=== PATIENT | female | born 1960 | race Caucasian/White ===

== ENCOUNTER 2019-03-07 18:37 | Inpatient (IN) | payer OTHER ==
[~2019-03-07] VITALS: Ht 162.6 cm; Wt 57.2 kg
[~2019-03-07 18:37] MED LIST: AMLODIPINE BESY10 MG; ATORVASTATIN CA10 MG; CYCLOBENZAPRINE10 MG; SYNTHROID100 MCG
[2019-03-22] MEDS ORDERED: AMOX-CLAV 875-1 EACH PO (10:13)
[2019-03-22] MEDS ORDERED: INTESTINEX680 M1 PO (10:13)
[2019-03-22] MEDS ORDERED: ULTRACET PO (10:13)
== END 2019-03-22 12:40 | disposition home or self-care (01) | DRG 754 ==
LOC: ER 18:37 → MEDI 23:43 → MEDJ 23:43 → SEC-K 03-08 02:51 → MEDI 03-08 16:58 → MEDJ 03-09 22:03
PROVIDERS: ADMIT Internal Medicine
PROC: BW3GY0Z Magnetic Resonance Imaging (MRI) of Pelvic Region using Other Contrast, Unenhanced and Enhanced (ICD-10-PCS; 2019-03-07)
PROC: 8E0ZXY6 Isolation (ICD-10-PCS; 2019-03-07)
PROC: BW30Y0Z Magnetic Resonance Imaging (MRI) of Abdomen using Other Contrast, Unenhanced and Enhanced (ICD-10-PCS; 2019-03-08)
PROC: B54DZZZ Ultrasonography of Bilateral Lower Extremity Veins (ICD-10-PCS; 2019-03-08)
PROC: BB24Y0Z Computerized Tomography (CT Scan) of Bilateral Lungs using Other Contrast, Unenhanced and Enhanced (ICD-10-PCS; 2019-03-09)
PROC: 02HV33Z Insertion of Infusion Device into Superior Vena Cava, Percutaneous Approach (ICD-10-PCS; 2019-03-10)
PROC: BW21Y0Z Computerized Tomography (CT Scan) of Abdomen and Pelvis using Other Contrast, Unenhanced and Enhanced (ICD-10-PCS; 2019-03-11)
PROC: 0D9W30Z Drainage of Peritoneum with Drainage Device, Percutaneous Approach (ICD-10-PCS; principal; 2019-03-12)
PROC: 0W9B30Z Drainage of Left Pleural Cavity with Drainage Device, Percutaneous Approach (ICD-10-PCS; 2019-03-21)
DX: C56.2 Malignant neoplasm of left ovary (principal); K65.1 Peritoneal abscess; R65.10 Systemic inflammatory response syndrome (SIRS) of non-infectious origin without acute organ dysfunction; N39.0 Urinary tract infection, site not specified; J90 Pleural effusion, not elsewhere classified; J98.11 Atelectasis; F32.3 Major depressive disorder, single episode, severe with psychotic features; R18.8 Other ascites; N73.0 Acute parametritis and pelvic cellulitis; C79.61 Secondary malignant neoplasm of right ovary; N20.0 Calculus of kidney; E03.8 Other specified hypothyroidism; I87.2 Venous insufficiency (chronic) (peripheral); I10 Essential (primary) hypertension; D73.4 Cyst of spleen; K66.8 Other specified disorders of peritoneum; D25.1 Intramural leiomyoma of uterus; K76.0 Fatty (change of) liver, not elsewhere classified
CPT/HCPCS: 72196; 74182